=== PATIENT | female | born 1985 | race Caucasian/White ===

== ENCOUNTER 2021-05-04 08:38 | Inpatient (IN) | payer OTHER ==
[~2021-05-04] VITALS: Ht 165.1 cm; Wt 67.1 kg
[2021-05-04] MEDS ORDERED: OXYTOCIN/0.9 % SODIUM CHLORIDE 1,000 ML IV SCH ×2 (10:15→16:00)
[2021-05-04] MEDS ORDERED: TERBUTALINE SULFATE 1 MG/ML VIAL SUBCUT ONE (10:15)
[2021-05-04] MEDS ORDERED: NALBUPHINE HCL 10 MG/ML AMP IVP PRN (10:15)
[2021-05-04] MEDS ORDERED: LR 1,000 ML IV SCH (10:15)
[2021-05-04] MEDS ORDERED: LR 500 ML IV ONE (10:15)
[2021-05-04 11:03] LABS: BASOPHILS % (AUTO) 0.6 % (0.0-2.0); EOSINOPHILS # (AUTO) 0.1 K/uL (0.0-0.4); EOSINOPHILS % (AUTO) 0.7 % (0.0-4.0); HEMATOCRIT 39.8 % (36-48); HEMOGLOBIN 13.1 g/dL (12.0-16.0); LYMPHOCYTES # (AUTO) 1.6 K/uL (1.0-5.5); LYMPHOCYTES % (AUTO) 18.8 % (20.5-51.5); MEAN CORPUSCULAR HEMOGLOBIN 28 pg (27-31); MEAN CORPUSCULAR HGB CONC 33 % (32-36); MEAN CORPUSCULAR VOLUME 83 fL (79.0-98.0); MONOCYTES # (AUTO) 0.7 K/uL (0.0-1.0); MONOCYTES % (AUTO) 8.8 % (1.7-9.3); NEUTROPHILS # (AUTO) 5.9 K/uL (1.8-7.7); NEUTROPHILS % (AUTO) 71.1 % (40.0-70.0); PLATELET COUNT (AUTO) 159 K/uL (130-430); RED BLOOD CELL COUNT(AUTO) 4.78 MIL/uL (4.2-6.2); RED CELL DISTRIBUTION WIDTH 13.7 % (9.0-15.0); WHITE BLOOD COUNT (AUTO) 8.3 K/uL (4.8-10.8)
[2021-05-04] MEDS ORDERED: LIDOCAINE PF 1% 30ML(POUR BTL) INJ ONE (15:00)
[2021-05-04] MEDS ORDERED: LIGHT MINERAL OIL 10 ML VIAL MC ONE (15:00)
[2021-05-04] MEDS ORDERED: fentaNYL CITRATE/PF 100 MCG/2 ML AMP ONE (15:14)
[2021-05-04] MEDS ORDERED: ROPIVACAINE HCL/PF 0.2% 0 ML ONE (15:14)
[2021-05-04] MEDS ORDERED: METHYLERGONOVINE MALEATE 0.2 MG TABLET PO PRN (16:00)
[2021-05-04] MEDS ORDERED: OXYTOCIN/0.9 % SODIUM CHLORIDE 1,000 ML IV ONE (16:00)
[2021-05-04] MEDS ORDERED: ANUSOL 1 EA SUPP.RECT (PREPARATION H) RC PRN (16:00)
[2021-05-04] MEDS ORDERED: OXYCODONE/ACETAMINOPHEN 5-325 TABLET PO PRN (16:00)
[2021-05-04] MEDS ORDERED: LANOLIN 7 GM OINT. TP PRN (16:00)
[2021-05-04] MEDS ORDERED: DERMOPLAST SPRAY TP PRN (16:00)
[2021-05-04] MEDS ORDERED: HYDROCORTISONE 0.5% CREAM 28.4 GM CREAM.GM. TP PRN (16:00)
[2021-05-04] MEDS ORDERED: WITCH HAZEL LEAF 1 MED.PAD MED.PAD TP PRN (16:00)
[2021-05-04] MEDS: OXYCODONE/ACETAMINOPHEN 5-325 TABLET PO PRN ×2 (17:20→20:30)
[2021-05-04] MEDS: IBUPROFEN 800 MG TABLET PO PRN (18:03)
[2021-05-04] MEDS ORDERED: SENNOSIDES/DOCUSATE SODIUM 1 TAB TABLET(SENOKOT-S) PO SCH (21:00)
[2021-05-04] MEDS ORDERED: TEMAZEPAM 15 MG CAPSULE PO PRN (21:00)
[2021-05-04] MEDS ORDERED: CLINDAMYCIN 900 MG in D5W 100 ML IV SCH (21:00)
[2021-05-04] MEDS ORDERED: CLINDAMYCIN 900 mg/50mL D5W 50 ML IV ONE (21:20)
[2021-05-05] MEDS: IBUPROFEN 800 MG TABLET PO PRN ×3 (00:07→11:47)
[2021-05-05] MEDS ORDERED: CLINDAMYCIN PHOS 900 MG/ D5W 50 ML PREMIX IV SCH (09:00)
[2021-05-05] MEDS ORDERED: DOCUSATE SODIUM 100 MG CAPSULE PO SCH (09:00)
[2021-05-05 09:52] LABS: HEMATOCRIT 36.2 % (36-48)
[2021-05-05] MEDS: OXYCODONE/ACETAMINOPHEN 5-325 TABLET PO PRN (10:05)
== END 2021-05-05 17:11 | disposition home or self-care (01) | DRG 807 ==
LOC: OBSVTOIN 08:38 → SPU 08:38
PROVIDERS: ADMIT Obstetrics & Gynecology; ATTEND Obstetrics & Gynecology
PROC: 10E0XZZ Delivery of Products of Conception, External Approach (ICD-10-PCS; principal; 2021-05-04)
PROC: 0KQM0ZZ Repair Perineum Muscle, Open Approach (ICD-10-PCS; 2021-05-04)
DX: O70.1 Second degree perineal laceration during delivery (principal); Z37.0 Single live birth; Z88.0 Allergy status to penicillin; Z20.822 Contact with and (suspected) exposure to COVID-19; Z3A.38 38 weeks gestation of pregnancy
CPT/HCPCS: 36415; 85018; 85025; 86592; 86780; 86886; 86900; 86901; J2001; J2300; J2590; J3010; J3490; J7060